=== PATIENT | male | born 1960 | race Two or more races ===

== ENCOUNTER 2022-07-23 11:47 | Emergency (ER) | payer OTHER ==
[~2022-07-23] VITALS: Ht 182.9 cm; Wt 94.6 kg
[2022-07-23 13:06] VITALS: BP 163/93
[2022-07-23] MEDS ORDERED: cefTRIAXone SOD 1,000 MG VL IM ONE (13:15)
[2022-07-23] MEDS ORDERED: AZIT500T66 PO (13:47)
[2022-07-23] MEDS ORDERED: PROM1SOL4 PO (13:47)
[2022-07-23] MEDS ORDERED: LEVO500T31 PO (13:47)
== END 2022-07-23 13:55 | disposition home or self-care (01) ==
LOC: ER 11:47
DX: J18.9 Pneumonia, unspecified organism (principal); J01.90 Acute sinusitis, unspecified; E11.9 Type 2 diabetes mellitus without complications
CPT/HCPCS: 71046; 96372; 99283; J0696

== ENCOUNTER 2022-09-09 14:26 | Emergency (ER) | payer OTHER ==
[~2022-09-09] VITALS: Ht 182.9 cm; Wt 95.4 kg
[~2022-09-09 14:26] MED LIST: AZIT500T66 PO; LEVO500T31 PO; PROM1SOL4 PO
[2022-09-09 14:45] VITALS: BP 153/96
== END 2022-09-09 17:49 | disposition left against medical advice (07) ==
LOC: ER 14:26
DX: R09.81 Nasal congestion (principal); R09.89 Other specified symptoms and signs involving the circulatory and respiratory systems; Z53.21 Procedure and treatment not carried out due to patient leaving prior to being seen by health care provider

== ENCOUNTER 2022-10-27 14:42 | Inpatient (IN) | payer OTHER ==
[~2022-10-27] VITALS: Ht 185.4 cm; Wt 87.6 kg
[2022-10-27] MEDS ORDERED: ALBUTEROL SULF 2.5 MG/0.5ML(0.5%) NEB SOLN NEB ONE (22:45)
[2022-10-27] MEDS ORDERED: IPRATROPIUM BROM 0.5 MG/2.5ML INH SOL NEB ONE (22:45)
[2022-10-27] MEDS ORDERED: HYDROcodone-ACET 10/325MG TAB PO ONE (22:45)
[2022-10-27] MEDS ORDERED: DexAMETHasone SOD PHOS 10MG/1ML VIAL INJ IV ONE (22:45)
[2022-10-27] MEDS ORDERED: AZITHROMYCIN 500MG/ 250ML 250 ML IV ONE (23:00)
[2022-10-27] MEDS ORDERED: cefTRIAXone 1GM/50ML D5W 50 ML IV ONE (23:00)
[2022-10-27 23:11] LABS: Basophils # (auto) 0 10 ^3/uL (0-0.2); Basophils % (auto) 0.3 % (0.0-2.0); Eosinophils # (auto) 0.3 10 ^3/uL (0-0.8); Eosinophils % (auto) 3.3 % (0.0-7.0); Hematocrit 39.9 % (41.0-53.0); Hemoglobin 13.3 g/dL (13.5-17.5); Lymphocytes # (auto) 2.8 10 ^3/uL (0.4-5.4); Lymphocytes % (auto) 29.4 % (10.0-50.0); Mean Corpuscular Hemoglobin 28.9 pg (28.0-32.0); Mean Corpuscular Hgb Conc. 33.3 g/dL (32.0-36.0); Mean Corpuscular Volume 86.7 fL (80.0-100.0); Monocytes % (auto) 10.6 % (0.0-12.0); Neutrophils # (auto) 5.3 10 ^3/uL (1.6-8.6); Neutrophils % (auto) 56.4 % (37.0-80.0); Nucleated Red Blood Cells % 0.1 %; Red Blood Cells 4.61 10^6/uL (4.5-5.90); Red Cell Distribution Width 15.3 % (11.8-14.3); White Blood Cell 9.4 10^3/uL (4.4-10.8)
[2022-10-27 23:26] LABS: Albumin 3.3 g/dL (3.4-5.0); BUN/Creatinine Ratio 17.9 (10.0-20.0); Calcium 8.9 mg/dL (8.5-10.1); Potassium 3.5 mmol/L (3.5-5.1)
[2022-10-27 23:28] LABS: Bilirubin, Total 0.3 mg/dL (0.2-1.0); Total Protein 7.5 g/dL (6.4-8.2)
[2022-10-28] MEDS ORDERED: ONDANSETRON HCL 4 MG/2 ML VIAL IV PRN ×2 (00:15→14:00)
[2022-10-28] MEDS ORDERED: TEMAZEPAM 15 MG CAP PO PRN (00:15)
[2022-10-28] MEDS ORDERED: ALBUTEROL SULF 2.5 MG/0.5ML(0.5%) NEB SOLN NEB PRN (00:15)
[2022-10-28] MEDS ORDERED: DEXTROSE (50%) 50ML SYRG IV PRN (00:15)
[2022-10-28 00:34] VITALS: BP 142/80
[2022-10-28] MEDS: guaiFENesin-DM 100/10mg/5ml SYR PO PRN ×2 (05:33→19:43)
[2022-10-28] MEDS: InsuLIN REG 1unit/0.01ml Soln (100units/ml) SC SCH ×4 (06:45→22:09)
[2022-10-28] MEDS: ACCU-CHEK COMFORT CURVE STRIP VI SCH ×4 (06:46→22:10)
[2022-10-28] MEDS: ACETAMINOPHEN 325 MG TAB PO PRN ×2 (07:15→12:28)
[2022-10-28] MEDS ORDERED: ENOXAPARIN SOD 40 MG/0.4 ML SYRINGE SC SCH (10:00)
[2022-10-28] MEDS: PANTOPRAZOLE 40 MG TAB PO SCH (10:19)
[2022-10-28] MEDS ORDERED: MORPHINE SULFATE INJ 2 MG/ml SYRG IV PRN (14:00)
[2022-10-28 16:27] VITALS: BP 147/93
[2022-10-28] MEDS: CEFEPIME 1GM/ 50ML 50 ML IV SCH ×2 (16:27→22:06)
[2022-10-28] MEDS ORDERED: NICO21DI37 TOP (17:20)
[2022-10-28] MEDS ORDERED: EMPA1TAB3 PO (17:20)
[2022-10-28] MEDS ORDERED: METF-372 PO (17:20)
[2022-10-28] MEDS ORDERED: INSU1INJ19 SC (17:20)
[2022-10-28] MEDS ORDERED: IBUP-1455 PO (17:20)
[2022-10-28] MEDS ORDERED: ATOR-47 PO (17:20)
[2022-10-28] MEDS: ALBUTEROL SULF 2.5 MG/0.5ML(0.5%) NEB SOLN NEB SCH (19:21)
[2022-10-28] MEDS: IPRATROPIUM BROM 0.5 MG/2.5ML INH SOL NEB SCH (19:21)
[2022-10-28] MEDS: ACETAMINOPHEN 500 MG TAB PO PRN (19:54)
[2022-10-28 20:00] VITALS: BP 124/76
[2022-10-28] MEDS ORDERED: cefTRIAXone 1GM/50ML D5W 50 ML IV SCH (20:00)
[2022-10-28] MEDS ORDERED: AZITHROMYCIN 500MG/ 250ML 250 ML IV SCH (21:00)
[2022-10-28 22:00] VITALS: BP_SYST 124; BP_SYST 132; BP_DIAS 73; BP_DIAS 76
[2022-10-29 05:00] VITALS: BP 132/73
[2022-10-29] MEDS: CEFEPIME 1GM/ 50ML 50 ML IV SCH ×3 (05:53→21:38)
[2022-10-29] MEDS: ACCU-CHEK COMFORT CURVE STRIP VI SCH ×4 (05:58→21:49)
[2022-10-29] MEDS: InsuLIN REG 1unit/0.01ml Soln (100units/ml) SC SCH ×4 (05:58→21:49)
[2022-10-29] MEDS: ALBUTEROL SULF 2.5 MG/0.5ML(0.5%) NEB SOLN NEB SCH ×3 (06:08→19:26)
[2022-10-29] MEDS: IPRATROPIUM BROM 0.5 MG/2.5ML INH SOL NEB SCH ×3 (06:08→19:26)
[2022-10-29 06:12] LABS: Basophils # (auto) 0 10 ^3/uL (0-0.2); Eosinophils # (auto) 0.1 10 ^3/uL (0-0.8); Hemoglobin 12.6 g/dL (13.5-17.5); Monocytes # (auto) 0.9 10 ^3/uL (0-1.3)
[2022-10-29 06:16] LABS: Basophils % (auto) 0.4 % (0.0-2.0); Eosinophils % (auto) 0.9 % (0.0-7.0); Hematocrit 36.8 % (41.0-53.0); Lymphocytes % (auto) 19.2 % (10.0-50.0); Mean Corpuscular Hemoglobin 30.1 pg (28.0-32.0); Mean Corpuscular Hgb Conc. 34.2 g/dL (32.0-36.0); Mean Corpuscular Volume 87.8 fL (80.0-100.0); Monocytes % (auto) 8.5 % (0.0-12.0); Neutrophils # (auto) 7.3 10 ^3/uL (1.6-8.6); Red Blood Cells 4.19 10^6/uL (4.5-5.90); Red Cell Distribution Width 15.2 % (11.8-14.3); White Blood Cell 10.2 10^3/uL (4.4-10.8)
[2022-10-29 06:44] LABS: BUN/Creatinine Ratio 19.7 (10.0-20.0); Calcium 8.8 mg/dL (8.5-10.1); Potassium 3.5 mmol/L (3.5-5.1)
[2022-10-29] MEDS: PANTOPRAZOLE 40 MG TAB PO SCH (08:39)
[2022-10-29] MEDS: guaiFENesin-DM 100/10mg/5ml SYR PO PRN ×3 (08:44→21:43)
[2022-10-29] MEDS: ACETAMINOPHEN 500 MG TAB PO PRN (08:44)
[2022-10-29 09:00] VITALS: BP 118/60
[2022-10-29] MEDS ORDERED: DexAMETHasone SOD PHOS 10MG/1ML VIAL INJ IV ONE (10:45)
[2022-10-29] MEDS ORDERED: LIDOCAINE 2%HCL (LOCAL ANESTH.) INJ 10ml MDV ONE (11:06)
[2022-10-29] MEDS ORDERED: IOHEXOL 300 MG/ML 100ML BOTTLE IJ ONE ×2 (11:08→11:40)
[2022-10-29] MEDS ORDERED: fentaNYL CITRATE 100 MCG/2 ML VL ONE (11:28)
[2022-10-29 13:00] VITALS: BP 134/87
[2022-10-29 17:00] VITALS: BP 137/85
[2022-10-29] MEDS: HYDROcodone-ACET 5/325MG TAB PO PRN (19:59)
[2022-10-29 20:00] VITALS: BP 149/82
[2022-10-29 22:00] VITALS: BP 149/82
[2022-10-30] VITALS (7 sets, daily range): BP systolic 116–139; BP diastolic 59–82
[2022-10-30] MEDS: CEFEPIME 1GM/ 50ML 50 ML IV SCH ×3 (05:42→21:34)
[2022-10-30 06:23] LABS: Calcium 8.8 mg/dL (8.5-10.1); Potassium 3.8 mmol/L (3.5-5.1)
[2022-10-30 06:25] LABS: BUN/Creatinine Ratio 20.8 (10.0-20.0)
[2022-10-30] MEDS: ACCU-CHEK COMFORT CURVE STRIP VI SCH ×4 (06:26→21:39)
[2022-10-30 06:27] LABS: Basophils # (auto) 0 10 ^3/uL (0-0.2); Eosinophils # (auto) 0 10 ^3/uL (0-0.8); Eosinophils % (auto) 0.2 % (0.0-7.0); Lymphocytes # (auto) 2.1 10 ^3/uL (0.4-5.4); Mean Corpuscular Hemoglobin 29.3 pg (28.0-32.0); Monocytes # (auto) 0.9 10 ^3/uL (0-1.3); White Blood Cell 10.7 10^3/uL (4.4-10.8)
[2022-10-30 06:29] LABS: Basophils % (auto) 0.3 % (0.0-2.0); Hemoglobin 12.6 g/dL (13.5-17.5); Lymphocytes % (auto) 19.3 % (10.0-50.0); Mean Corpuscular Volume 86.2 fL (80.0-100.0); Monocytes % (auto) 8.5 % (0.0-12.0); Neutrophils # (auto) 7.7 10 ^3/uL (1.6-8.6); Neutrophils % (auto) 71.7 % (37.0-80.0); Red Blood Cells 4.29 10^6/uL (4.5-5.90); Red Cell Distribution Width 15.4 % (11.8-14.3)
[2022-10-30] MEDS: InsuLIN REG 1unit/0.01ml Soln (100units/ml) SC SCH ×4 (06:32→21:45)
[2022-10-30] MEDS: ALBUTEROL SULF 2.5 MG/0.5ML(0.5%) NEB SOLN NEB SCH ×3 (06:43→19:53)
[2022-10-30] MEDS: IPRATROPIUM BROM 0.5 MG/2.5ML INH SOL NEB SCH ×3 (06:43→19:53)
[2022-10-30] MEDS: PANTOPRAZOLE 40 MG TAB PO SCH (11:30)
[2022-10-30] MEDS: DexAMETHasone SOD PHOS 10MG/1ML VIAL INJ IV SCH (11:30)
[2022-10-30] MEDS: ACETAMINOPHEN 500 MG TAB PO PRN (12:26)
[2022-10-30] MEDS ORDERED: DOCUSATE SOD 100 MG CAP PO PRN (15:45)
[2022-10-30] MEDS: HYDROcodone-ACET 5/325MG TAB PO PRN (17:16)
[2022-10-30] MEDS: guaiFENesin-DM 100/10mg/5ml SYR PO PRN (17:40)
[2022-10-31 05:00] VITALS: BP 134/80
[2022-10-31] MEDS: CEFEPIME 1GM/ 50ML 50 ML IV SCH (05:56)
[2022-10-31] MEDS: guaiFENesin-DM 100/10mg/5ml SYR PO PRN ×2 (06:05→08:04)
[2022-10-31] MEDS: ACCU-CHEK COMFORT CURVE STRIP VI SCH ×2 (06:06→11:35)
[2022-10-31] MEDS: InsuLIN REG 1unit/0.01ml Soln (100units/ml) SC SCH ×2 (06:07→11:39)
[2022-10-31 06:20] LABS: Potassium 3.7 mmol/L (3.5-5.1)
[2022-10-31 06:23] LABS: Basophils # (auto) 0 10 ^3/uL (0-0.2); Eosinophils # (auto) 0 10 ^3/uL (0-0.8); Hemoglobin 12.6 g/dL (13.5-17.5); Lymphocytes # (auto) 2.2 10 ^3/uL (0.4-5.4); Neutrophils # (auto) 6.4 10 ^3/uL (1.6-8.6); White Blood Cell 9.6 10^3/uL (4.4-10.8)
[2022-10-31 06:26] LABS: Basophils % (auto) 0.2 % (0.0-2.0); Eosinophils % (auto) 0.3 % (0.0-7.0); Hematocrit 37.8 % (41.0-53.0); Lymphocytes % (auto) 23.3 % (10.0-50.0); Mean Corpuscular Hemoglobin 28.9 pg (28.0-32.0); Mean Corpuscular Hgb Conc. 33.3 g/dL (32.0-36.0); Mean Corpuscular Volume 86.9 fL (80.0-100.0); Monocytes # (auto) 0.9 10 ^3/uL (0-1.3); Monocytes % (auto) 9.8 % (0.0-12.0); Neutrophils % (auto) 66.4 % (37.0-80.0); Red Blood Cells 4.35 10^6/uL (4.5-5.90); Red Cell Distribution Width 14.9 % (11.8-14.3)
[2022-10-31 06:28] LABS: BUN/Creatinine Ratio 21.1 (10.0-20.0); Calcium 8.7 mg/dL (8.5-10.1)
[2022-10-31] MEDS: ALBUTEROL SULF 2.5 MG/0.5ML(0.5%) NEB SOLN NEB SCH ×2 (07:00→11:45)
[2022-10-31] MEDS: IPRATROPIUM BROM 0.5 MG/2.5ML INH SOL NEB SCH ×2 (07:00→11:45)
[2022-10-31 07:54] VITALS: BP 116/59
[2022-10-31 09:00] VITALS: BP 126/77
[2022-10-31] MEDS: DexAMETHasone SOD PHOS 10MG/1ML VIAL INJ IV SCH (09:26)
[2022-10-31] MEDS: PANTOPRAZOLE 40 MG TAB PO SCH (09:26)
[2022-10-31 13:08] VITALS: BP 117/86
[2022-10-31] MEDS ORDERED: PRED20TA2 PO (13:35)
[2022-10-31] MEDS ORDERED: LEVO750T40 PO (13:35)
== END 2022-10-31 14:50 | disposition home or self-care (01) | DRG 190 ==
LOC: ER 14:42 → OVERFLOW 10-28 00:06 → WEST WING 10-28 14:32
PROVIDERS: ADMIT Nurse Practitioner; ATTEND Nurse Practitioner Acute Care
PROC: 0BBK3ZX Excision of Right Lung, Percutaneous Approach, Diagnostic (ICD-10-PCS; principal; 2022-10-29)
DX: J44.1 Chronic obstructive pulmonary disease with (acute) exacerbation (principal); J18.9 Pneumonia, unspecified organism; C34.91 Malignant neoplasm of unspecified part of right bronchus or lung; J44.0 Chronic obstructive pulmonary disease with (acute) lower respiratory infection; E11.9 Type 2 diabetes mellitus without complications; I10 Essential (primary) hypertension; R59.0 Localized enlarged lymph nodes; Z87.891 Personal history of nicotine dependence
CPT/HCPCS: 10005; 36415; 71045; 71250; 74177; 77012; 80048; 80053; 82962; 83036; 83605; 85025; 87070; 87205; 94640; 96374; G0378; J0696; J1100; J1815; J2001

== ENCOUNTER 2023-10-06 20:05 | Emergency (ER) | payer MEDICARE, OTHER ==
[~2023-10-06] VITALS: Ht 182.9 cm; Wt 70.0 kg
[~2023-10-06 20:05] MED LIST changes: +ATOR-47 PO; -AZIT500T66 PO; +EMPA1TAB3 PO; +IBUP-1455 PO; +INSU1INJ19 SC; +LEVO750T40 PO; +METF-372 PO; +NICO21DI37 TOP; +PRED20TA2 PO
[2023-10-06 20:30] VITALS: BP 108/72; PULSE 82; RESP 16; O2SAT 94
[2023-10-06] MEDS: GABAPENTIN 300 MG CAP PO ONE (22:30)
[2023-10-06] MEDS ORDERED: GABA-1250 PO (22:33)
== END 2023-10-07 03:29 | disposition home or self-care (01) ==
LOC: EDBD 20:05 → ER 20:05
DX: M47.812 Spondylosis without myelopathy or radiculopathy, cervical region (principal); M47.816 Spondylosis without myelopathy or radiculopathy, lumbar region; I10 Essential (primary) hypertension; E11.9 Type 2 diabetes mellitus without complications; Z85.9 Personal history of malignant neoplasm, unspecified; Z87.891 Personal history of nicotine dependence; Z88.8 Allergy status to other drugs, medicaments and biological substances; Z79.899 Other long term (current) drug therapy
CPT/HCPCS: 72040; 72100